=== PATIENT | female | born 1985 | race Two or more races ===

== ENCOUNTER 2022-07-13 08:07 | Emergency (ER) | payer BC ==
[2022-07-13 09:58] LABS: Pregnancy Test - Urine (BHCG) Negative (Negative); Pregu Control Background? CLEAR/WHITE (CLR/WHITE); Pregu Control Bar Appear? YES (CONTROL BAR)
== END 2022-07-13 10:24 | disposition home or self-care (01) ==
LOC: CSHERS 08:07
DX: U07.1 COVID-19 (principal); Z87.891 Personal history of nicotine dependence
CPT/HCPCS: 71045; 81025; 84484; 87804; 93005; U0003; U0005

== ENCOUNTER 2023-08-20 21:49 | Emergency (ER) | payer BC ==
[2023-08-20] MEDS ORDERED: HYDROcodone/Acetaminophen 5/325 mg Tablet ONE (23:15)
== END 2023-08-20 23:30 | disposition home or self-care (01) ==
LOC: CSHERS 21:49
DX: S92.512A Displaced fracture of proximal phalanx of left lesser toe(s), initial encounter for closed fracture (principal); S92.245A Nondisplaced fracture of medial cuneiform of left foot, initial encounter for closed fracture; Z87.891 Personal history of nicotine dependence; X50.9XXA Other and unspecified overexertion or strenuous movements or postures, initial encounter